=== PATIENT | male | born 1995 | race African-American/Black ===

== ENCOUNTER 2016-07-01 07:55 | Emergency (ER) | payer OTHER ==
[2016-07-01 07:59] VITALS: BP 128/62; PULSE 119; RESP 20; TEMP 98.5
--- NOTE | 2016-07-01 08:26 | ED ---
URI HPI - General Chief Complaint: Upper Respiratory Infection Stated Complaint: congestion Time Seen by Provider: 07/01/16 08:05 Source: patient, RN notes reviewed Mode of arrival: ambulatory Limitations: no limitations - History of Present Illness Initial Comments: Patient is a 20-year-old male presents to the emergency room for evaluation upper respiratory symptoms. Patient states he's had nasal congestion and sore throat and bilateral ear pain for the past week. Patient states been taking ibuprofen [id number] with no relief of symptoms. Patient states symptoms been lasting for about a week. Patient states that he wakes up with severe nasal congestion and cannot breathe out of his nose. Patient denies fevers or chills. Patient has abdominal pain. Patient denies cough. Patient denies chest pain or shortness of breath. - Related Data Home Medications Medication Instructions Recorded Confirmed Dm/Acetaminophen/Doxylamine [Vicks 30 ml PO Q6H PRN 07/01/16 07/01/16 Nyquil Cold & Flu Liquid] Ibuprofen [Motrin] 200 mg PO Q6HR PRN 07/01/16 07/01/16 diphenhydrAMINE [Benadryl] 25 mg PO Q4H PRN MDD 6TABS/24H 07/01/16 07/01/16 Previous Rx's Medication Instructions Recorded Azithromycin [Zithromax Z-pack] 250 mg PO DIRECTED #6 tab 07/01/16 Fluticasone Nasal [place] [Flonase 2 spr EA NOSTRIL DAILY #1 bottle 07/01/16 Nasal [place]] Allergies Allergy/AdvReac Type Severity Reaction Status Date / Time Penicillins Allergy Unknown Verified 07/01/16 08:59 Childhood Review of Systems ROS Statement: Those systems with pertinent positive or pertinent negative responses have been documented in the HPI. ROS Other: All systems not noted in ROS Statement are negative. Past Medical History Additional Past Medical History / Comment(s): frequent nose bleeds History of Any Multi-Drug Resistant Organisms: None Reported Past Surgical History: No Surgical Hx Reported Past Psychological History: No Psychological Hx Reported Smoking Status: Never smoker Past Alcohol Use History: None Reported Past Drug Use History: None Reported General Exam - General Exam Comments Initial Comments: Sitting in exam room, no acute distress. Limitations: no limitations General appearance: alert, in no apparent distress Head exam: Present: atraumatic, normocephalic, normal inspection Eye exam: Present: normal appearance ENT exam: Present: mucous membranes moist, TM's normal bilaterally, normal external ear exam Expanded Throat exam: tonsillar erythema, tonsillar exudate Neck exam: Present: normal inspection Respiratory exam: Present: normal lung sounds bilaterally. Absent: respiratory distress Cardiovascular Exam: Present: normal rhythm, tachycardia, normal heart sounds GI/Abdominal exam: Present: soft, normal bowel sounds. Absent: distended, tenderness, guarding, rebound, rigid Course Vital Signs 07/01/16 07:57 Temperature 98.5 F Pulse Rate 119 H Respiratory 20 Rate Blood Pressure 128/62 O2 Sat by Pulse 99 Oximetry Medical Decision Making - Medical Decision Making Patient is a 20-year-old male presents emergency room for evaluation upper respiratory symptoms. Rapid strep negative. Patient has had sinusitis-like symptoms for the past week with no relief of symptoms. Will place patient on antibiotics and Flonase and have him follow-up with his primary care provider in 24-48 hours for reevaluation. Patient states he understands everything that was discussed with him. Return parameters discussed. Case discussed with Dr. Burnett. - Lab Data Lab Results 07/01/16 Range/Units 08:23 Group A Strep Rapid Negative (Negative) Disposition Clinical Impression: Sinusitis Disposition: HOME SELF-CARE Condition: Good Instructions: Sinusitis (ED) Additional Instructions: Take antibiotics as directed. Use nasal spray as directed. Drink plenty of fluids. Take Tylenol or Motrin as needed for discomfort. Please follow up with primary care provider in 24-48 hours for reevaluation. If any new symptom arises or symptoms worsen, return to ER as soon as possible. Prescriptions: Azithromycin [Zithromax Z-pack] 250 mg PO DIRECTED #6 tab Fluticasone Nasal [place] [Flonase Nasal [place]] 2 spr EA NOSTRIL DAILY #1 bottle Referrals: Sushant Vinson MD [Primary Care Provider] - 1-2 days Time of Disposition: 09:05
== END 2016-07-01 09:23 | disposition home or self-care (01) ==
LOC: EC 07:55
DX: J32.9 Chronic sinusitis, unspecified (principal); R00.0 Tachycardia, unspecified; R10.9 Unspecified abdominal pain; Z88.0 Allergy status to penicillin
CPT/HCPCS: 87081; 87430; 99283

== ENCOUNTER 2016-10-17 08:07 | Emergency (ER) | payer OTHER ==
[2016-10-17 08:18] VITALS: BP 129/81; PULSE 115; RESP 18; TEMP 97.8
--- NOTE | 2016-10-17 08:35 | ED ---
Skin/Abscess/FB HPI - General Chief complaint: Skin/Abscess/Foreign Body Stated complaint: neck pain Time Seen by Provider: 10/17/16 08:26 Source: patient, RN notes reviewed, old records reviewed Mode of arrival: ambulatory Limitations: no limitations - History of Present Illness Initial comments: 21-year-old male presents emergency Department chief complaint of a enlarged lump over the back of his right side of his neck. Patient states that he's noticed it for about a week. It is movable. He reports that somewhat tender to touch. Patient denies any fevers or chills. Denies any upper respiratory illnesses. Denies any significant ear pain, sore throat, chest pain coughs, shortness of breath, abdominal pain nausea or vomiting. Patient states that she also noticed a second one somewhat near the original area. Patient denies any history of sick contacts. He did receive all of his childhood vaccinations. - Related Data Previous Rx's Medication Instructions Recorded Azithromycin [Zithromax Z-pack] 250 mg PO DIRECTED #6 tab 10/17/16 Allergies Allergy/AdvReac Type Severity Reaction Status Date / Time Penicillins Allergy Unknown Verified 10/17/16 08:25 Childhood Review of Systems ROS Statement: Those systems with pertinent positive or pertinent negative responses have been documented in the HPI. ROS Other: All systems not noted in ROS Statement are negative. Past Medical History Additional Past Medical History / Comment(s): frequent nose bleeds History of Any Multi-Drug Resistant Organisms: None Reported Past Surgical History: No Surgical Hx Reported Past Psychological History: No Psychological Hx Reported Smoking Status: Never smoker Past Alcohol Use History: None Reported Past Drug Use History: Marijuana General Exam - General Exam Comments Initial Comments: 21-year-old male. No distress. Limitations: no limitations General appearance: alert, in no apparent distress Head exam: Present: atraumatic, normocephalic, normal inspection Eye exam: Present: normal appearance, PERRL, EOMI. Absent: scleral icterus, conjunctival injection, periorbital swelling ENT exam: Present: normal exam, mucous membranes moist. Absent: TM's normal bilaterally (Patient does have erythematous bulging right TM.) Neck exam: Present: normal inspection, lymphadenopathy (Patient has posterior cervical lymphadenopathy. The lymph nodes are movable. He reports are somewhat tender to touch.) Respiratory exam: Present: normal lung sounds bilaterally. Absent: respiratory distress, wheezes, rales, rhonchi, stridor Cardiovascular Exam: Present: regular rate, normal rhythm, normal heart sounds. Absent: systolic murmur, diastolic murmur, rubs, gallop, clicks GI/Abdominal exam: Present: soft, normal bowel sounds. Absent: distended, tenderness, guarding, rebound, rigid Extremities exam: Present: normal inspection, full ROM, normal capillary refill. Absent: tenderness, pedal edema, joint swelling, calf tenderness Back exam: Present: normal inspection Neurological exam: Present: alert, oriented X3, CN II-XII intact Psychiatric exam: Present: normal affect, normal mood Skin exam: Present: warm, dry, intact, normal color. Absent: rash Course Vital Signs 10/17/16 08:15 Temperature 97.8 F Pulse Rate 115 H Respiratory 18 Rate Blood Pressure 129/81 O2 Sat by Pulse 100 Oximetry Medical Decision Making - Medical Decision Making 21-year-old male presents emergency Department chief complaint of a enlarged lump over the back of his right side of his neck. Patient states that he's noticed it for about a week. It is movable. He reports that somewhat tender to touch. Patient denies any fevers or chills. Denies any upper respiratory illnesses. Patient does have evidence of right-sided posterior cervical lymphadenopathy. On physical exam he does have a erythematous right-sided TM. Patient lymph node is palpable and movable. No significant firmness noted. Patient was informed that this is likely her spouse to a viral or bacterial illness. Given the fact the patient does have erythematous right-sided TM I will place the patient on azithromycin, as patient is ALLERGIC to penicillins.. Discussed that he needs to allow this a few weeks to come down heel, approximately 3-4. Discussed following up with his primary care provider if he still concern. Patient agrees to treatment plan will comply. Return parameters were discussed. Disposition Clinical Impression: Cervical lymphadenopathy, Right otitis media Disposition: HOME SELF-CARE Condition: Good Prescriptions: Azithromycin [Zithromax Z-pack] 250 mg PO DIRECTED #6 tab Referrals: Sushant Vinson MD [Primary Care Provider] - 1-2 days Time of Disposition: 08:34
== END 2016-10-17 08:42 | disposition home or self-care (01) ==
LOC: EC 08:07
DX: R59.0 Localized enlarged lymph nodes (principal); H66.91 Otitis media, unspecified, right ear; Z88.0 Allergy status to penicillin
CPT/HCPCS: 99283

== ENCOUNTER 2017-12-24 14:50 | Emergency (ER) | payer OTHER ==
[2017-12-24 15:00] VITALS: TEMP 98.1
--- NOTE | 2017-12-24 15:16 | ED ---
GI Bleed HPI - General Chief complaint: GI Bleed Stated complaint: Bowel issues Time Seen by Provider: 12/24/17 15:01 Source: patient Mode of arrival: ambulatory Limitations: no limitations - History of Present Illness Initial comments: Patient is a 22-year-old male presenting for rectal bleeding. The patient states that this is been going on for one year but he has been unable to seek medical attention because he had a new baby and a new job and cannot afford to take off from work. He states that this is been fairly constant issue and sometimes the blood is light red and then dark red at times. He also admits to difficulty having a bowel movement and he feels like he has the urge to go but could not. Sometimes the stools hard and he states that after he has a bowel movement, there is abdominal discomfort. However, at rest before bowel movement , he does not have any pain. He denies taking any medication including anticoagulants and denies any nausea/vomiting. He also denies any penile discharge or dysuria. - Related Data Previous Rx's Medication Instructions Recorded Azithromycin [Zithromax Z-pack] 250 mg PO DIRECTED #6 tab 10/17/16 Allergies Allergy/AdvReac Type Severity Reaction Status Date / Time Penicillins Allergy Unknown Verified 12/24/17 14:59 Childhood Review of Systems ROS Statement: Those systems with pertinent positive or pertinent negative responses have been documented in the HPI. Constitutional: Negative for chills, fatigue and fever. HENT: Negative for congestion. Respiratory: Negative for chest tightness, shortness of breath and wheezing. Negative for cough Cardiovascular: Negative for chest pain and palpitations. Gastrointestinal: Positive for abdominal pain. Negative for abdominal distention , diarrhea, nausea and vomiting. Positive for rectal bleeding Genitourinary: Negative for dysuria. Musculoskeletal: Negative for back pain, neck pain and neck stiffness. Skin: Negative for color change. Neurological: Negative for dizziness, speech difficulty, weakness and light- headedness. Psychiatric/Behavioral: Negative for agitation and confusion. Negative for anxiety ROS Other: All systems not noted in ROS Statement are negative. Past Medical History Additional Past Medical History / Comment(s): frequent nose bleeds History of Any Multi-Drug Resistant Organisms: None Reported Past Surgical History: No Surgical Hx Reported Additional Past Surgical History / Comment(s): nose cauterization Past Psychological History: No Psychological Hx Reported Smoking Status: Current every day smoker Past Alcohol Use History: None Reported Past Drug Use History: None Reported, Marijuana General Exam - General Exam Comments Initial Comments: Constitutional: Pt is oriented to person, place, and time. Pt appears well- developed and well-nourished. No distress. HENT: Head: Normocephalic and atraumatic. Eyes: EOM are normal. Neck: Normal range of motion. Neck supple. Cardiovascular: Normal rate, regular rhythm, S1 normal, S2 normal and normal heart sounds. Exam reveals no gallop and no friction rub. No murmur heard. Pulmonary/Chest: Effort normal and breath sounds normal. No tachypnea and no bradypnea. No respiratory distress. No wheezes or rales noted. Abdominal: Soft. Bowel sounds are normal. Pt exhibits no shifting dullness, no distension, no pulsatile liver, no fluid wave, no abdominal bruit and no ascites. There is no tenderness. There is no rigidity, no rebound, no guarding, no tenderness at McBurney's point and negative 's sign. : Positive for external hemorrhoids. Prostate is palpable with no evidence of hypertrophy. No masses felt in the rectal canal Musculoskeletal: Normal range of motion. Neurological: Pt is alert and oriented to person, place, and time. No cranial nerve deficit. Skin: Skin is warm and dry. No rash noted. Pt is not diaphoretic. No erythema. No pallor. Psychiatric: Pt has a normal mood and affect. Pt behavior is normal. Thought content normal. Limitations: no limitations Course Vital Signs 12/24/17 14:56 Temperature 98.1 F Pulse Rate 84 Respiratory 18 Rate Blood Pressure 153/92 O2 Sat by Pulse 94 L Oximetry Medical Decision Making - Medical Decision Making Laboratory studies revealed that there was no evidence of anemia and hemoglobin was stable at 14.2. There is no evidence of transaminitis or coagulopathies and the patient was advised that he should follow-up with GI and PCP in the next one to days. He was also advised to return to emergency department if the symptoms worsen. Patient was hemodynamically stable at the time of disposition and advised that hemorrhoids could be contributing to this. - Lab Data Result diagrams: 12/24/17 15:28 12/24/17 15:28 Lab Results 12/24/17 12/24/17 12/24/17 Range/Units 15:28 15:28 15:28 WBC 8.4 (3.8-10.6) k/uL RBC 4.88 (4.30-5.90) m/uL Hgb 14.2 (13.0-17.5) gm/dL Hct 43.5 (39.0-53.0) % MCV 89.1 (80.0-100.0) fL MCH 29.0 (25.0-35.0) pg MCHC 32.6 (31.0-37.0) g/dL RDW 13.2 (11.5-15.5) % Plt Count 154 (150-450) k/uL Neutrophils % 61 % Lymphocytes % 29 % Monocytes % 6 % Eosinophils % 2 % Basophils % 1 % Neutrophils # 5.1 (1.3-7.7) k/uL Lymphocytes # 2.4 (1.0-4.8) k/uL Monocytes # 0.5 (0-1.0) k/uL Eosinophils # 0.2 (0-0.7) k/uL Basophils # 0.0 (0-0.2) k/uL PT 10.7 (9.0-12.0) sec INR 1.1 (<1.2) APTT 23.9 (22.0-30.0) sec Sodium 141 (137-145) mmol/L Potassium 4.1 (3.5-5.1) mmol/L Chloride 107 (98-107) mmol/L Carbon Dioxide 26 (22-30) mmol/L Anion Gap 8 mmol/L BUN 9 (9-20) mg/dL Creatinine 0.75 (0.66-1.25) mg/dL Est GFR (CKD-EPI)AfAm >90 (>60 ml/min/1.73 sqM) Est GFR (CKD-EPI)NonAf >90 (>60 ml/min/1.73 sqM) Glucose 86 (74-99) mg/dL Calcium 10.3 H (8.4-10.2) mg/dL Total Bilirubin 0.7 (0.2-1.3) mg/dL AST 25 (17-59) U/L ALT 18 L (21-72) U/L Alkaline Phosphatase 51 (38-126) U/L Total Protein 7.6 (6.3-8.2) g/dL Albumin 4.7 (3.5-5.0) g/dL Disposition Clinical Impression: External hemorrhoid Disposition: HOME SELF-CARE Condition: Good Instructions: Gastrointestinal Bleeding (ED) Is patient prescribed a controlled substance at d/c from ED?: No Referrals: Tanika Santillan MD [Primary Care Provider] - 1-2 days Cedric Adams MD [STAFF PHYSICIAN] - 1-2 days Time of Disposition: 16:22
[2017-12-24 15:55] LABS: Basophils % (A) 1 %; Eosinophils # (A) 0.2 k/uL (0-0.7); Eosinophils % (A) 2 %; HCT 43.5 % (39.0-53.0); HGB 14.2 gm/dL (13.0-17.5); Lymphocytes # (A) 2.4 k/uL (1.0-4.8); Lymphocytes % (A) 29 %; MCHC 32.6 g/dL (31.0-37.0); MCV 89.1 fL (80.0-100.0); Monocytes # (A) 0.5 k/uL (0-1.0); Monocytes % (A) 6 %; Neutrophils # (A) 5.1 k/uL (1.3-7.7); Neutrophils % (A) 61 %; Platelet Count 154 k/uL (150-450); RBC 4.88 m/uL (4.30-5.90); RDW 13.2 % (11.5-15.5); WBC 8.4 k/uL (3.8-10.6)
[2017-12-24 16:02] LABS: ALT 18 U/L (21-72); AST 25 U/L (17-59); Albumin 4.7 g/dL (3.5-5.0); Alkaline Phosphatase 51 U/L (38-126); Anion Gap 8 mmol/L; Blood Urea Nitrogen 9 mg/dL (9-20); Calcium 10.3 mg/dL (8.4-10.2); Carbon Dioxide 26 mmol/L (22-30); Chloride 107 mmol/L (98-107); Glucose 86 mg/dL (74-99); Potassium 4.1 mmol/L (3.5-5.1); Sodium 141 mmol/L (137-145); Total Bilirubin 0.7 mg/dL (0.2-1.3); Total Protein 7.6 g/dL (6.3-8.2)
[2017-12-24 16:03] LABS: INR 1.1 (<1.2); Partial Thromboplastin Time 23.9 sec (22.0-30.0); Prothrombin Time 10.7 sec (9.0-12.0)
[2017-12-24 16:33] VITALS: BP 115/56; PULSE 65; RESP 16
== END 2017-12-24 16:33 | disposition home or self-care (01) ==
LOC: EC 14:50
DX: K64.4 Residual hemorrhoidal skin tags (principal); F17.200 Nicotine dependence, unspecified, uncomplicated; Z88.0 Allergy status to penicillin
CPT/HCPCS: 36415; 80053; 85025; 85610; 85730; 99284

== ENCOUNTER 2018-12-28 05:52 | Emergency (ER) | payer OTHER ==
[2018-12-28 05:59] VITALS: BP 130/78; PULSE 79; RESP 18; TEMP 98.3
--- NOTE | 2018-12-28 06:26 | ED ---
URI HPI - General Chief Complaint: Upper Respiratory Infection Stated Complaint: ENT Time Seen by Provider: 12/28/18 06:05 Source: patient, RN notes reviewed, old records reviewed Mode of arrival: ambulatory Limitations: no limitations - History of Present Illness Initial Comments: Patient is a 23-year-old male presents today for complaints of upper a story congestion, sinus pressure, minor sore throat and nasal drainage. Symptoms ongoing over the past 3 days. He reports that he works in [employer] and is requesting a note for work to that they will be coming sick. He has not taken any [id number] medications. He reports his daughter is sick with viral upper respiratory symptoms. Patient denies any recent fever, chills, shortness of breath, chest pain, back pain, abdominal pain, nausea vomiting, numbness or tingling, dysuria or hematuria, constipation or diarrhea, headaches or visual changes, or any other current symptoms - Related Data Previous Rx's Medication Instructions Recorded Azithromycin [Zithromax Z-pack] 250 mg PO DIRECTED #6 tab 10/17/16 Fluticasone Propionate [Flonase 1 spray EA NOSTRIL DAILY #1 bottle 12/28/18 Allergy Relief] Phenylephrine/Dm/Acetaminop/GG 1 each PO BID #20 capsule 12/28/18 [Mucinex Sinus-Max Pressure-Cgh] methylPREDNISolone [Medrol Dose 4 mg PO DIRECTED #1 pack 12/28/18 Pack] Allergies Allergy/AdvReac Type Severity Reaction Status Date / Time Penicillins Allergy Unknown Verified 12/28/18 05:58 Childhood Review of Systems ROS Statement: Those systems with pertinent positive or pertinent negative responses have been documented in the HPI. ROS Other: All systems not noted in ROS Statement are negative. Past Medical History Additional Past Medical History / Comment(s): frequent nose bleeds-nose cauterization History of Any Multi-Drug Resistant Organisms: None Reported Past Surgical History: No Surgical Hx Reported Additional Past Surgical History / Comment(s): nose cauterization Past Psychological History: No Psychological Hx Reported Smoking Status: Former smoker Past Alcohol Use History: None Reported Past Drug Use History: None Reported General Exam - General Exam Comments Initial Comments: 23-year-old male. Well-appearing no distress. Limitations: no limitations Head exam: Present: atraumatic, normocephalic, normal inspection Eye exam: Present: normal appearance, PERRL, EOMI. Absent: scleral icterus, conjunctival injection, periorbital swelling ENT exam: Present: normal exam, mucous membranes moist, other (Boggy erythematous nasal turbinates. Sinus tenderness.) Neck exam: Present: normal inspection. Absent: tenderness, meningismus, lymphadenopathy Respiratory exam: Present: normal lung sounds bilaterally. Absent: respiratory distress, wheezes, rales, rhonchi, stridor Cardiovascular Exam: Present: regular rate GI/Abdominal exam: Present: soft, normal bowel sounds. Absent: distended, tenderness, guarding, rebound, rigid Extremities exam: Present: normal inspection, full ROM, normal capillary refill. Absent: tenderness, pedal edema, joint swelling, calf tenderness Back exam: Present: normal inspection Neurological exam: Present: alert, oriented X3, CN II-XII intact Psychiatric exam: Present: normal affect, normal mood Skin exam: Present: warm, dry, intact, normal color. Absent: rash Course Vital Signs 12/28/18 05:56 Temperature 98.3 F Pulse Rate 79 Respiratory 18 Rate Blood Pressure 130/78 O2 Sat by Pulse 100 Oximetry Medical Decision Making - Medical Decision Making Patient is a 23-year-old male presents today for upper respiratory congestion, nasal drainage, minor sore throat and slight cough. Symptoms have been going on for 3 days. No [id number]-[id number] treatments have been given thus far. Patient has no fever medicines are stable. Patient clinically appears well besides some sinus congestion. He has had no coughing emergency department. He and drinking well. Patient discussed likely viral upper a story symptoms. Will discharge Patient with medications to help treat his symptoms including nasal spray decongestant medications. HIS rates her return parameters were discussed. Patient requesting a work note. Disposition Clinical Impression: Viral URI Disposition: HOME SELF-CARE Condition: Good Instructions (If sedation given, give patient instructions): Upper Respiratory Infection (ED) Additional Instructions: Please use medication as discussed. Please follow up with family doctor if symptoms have not improved over the next two days. Please return to the emergency room if your symptoms increase or worsen or for any other concerns. Prescriptions: Fluticasone Propionate [Flonase Allergy Relief] 1 spray EA NOSTRIL DAILY #1 bottle methylPREDNISolone [Medrol Dose Pack] 4 mg PO DIRECTED #1 pack Phenylephrine/Dm/Acetaminop/GG [Mucinex Sinus-Max Pressure-Cgh] 1 each PO BID #20 capsule Is patient prescribed a controlled substance at d/c from ED?: No Referrals: Bernardo Washington MD [Primary Care Provider] - 1-2 days Time of Disposition: 06:24
== END 2018-12-28 06:53 | disposition home or self-care (01) ==
LOC: EC 05:52
DX: J06.9 Acute upper respiratory infection, unspecified (principal); Z87.891 Personal history of nicotine dependence; Z88.0 Allergy status to penicillin; Z86.2 Personal history of diseases of the blood and blood-forming organs and certain disorders involving the immune mechanism
CPT/HCPCS: 99283